=== PATIENT | male | born 2000 | race African-American/Black ===

== ENCOUNTER 2020-01-10 16:42 | Inpatient (IN) | payer OTHER, BC ==
[~2020-01-10] VITALS: Ht 172.7 cm; Wt 68.2 kg
--- NOTE | 2020-01-10 17:34 | NUR ---
OFFICER MARVIN # [id number] AND 144 PRESENT IN ED TO TALK TO PATIENT. PT MOTHER AT BEDSIDE
[2020-01-10 17:46] LABS: ALBUMIN 4.2 g/dL (3.4-5.0); ALKALINE PHOSPHATASE 58 U/L (30-120); ALT (SGPT) 36 U/L (10-68); BILIRUBIN - TOTAL 0.51 mg/dL (0.2-1.3); CALC OSMOLALITY 280 mosm/kg (275-300); CALCIUM 9.3 mg/dL (8.5-10.1); CARBON DIOXIDE 23.9 mmol/L (21.0-32.0); CHLORIDE - SERUM 103 mmol/L (98-107); CREATININE - SERUM 0.8 mg/dL (0.6-1.3); GLUCOSE 118 mg/dL (74-106); POTASSIUM - SERUM 3.9 mmol/L (3.5-5.1); PROTEIN - SERUM 8.1 g/dL (6.4-8.2); SODIUM 140 mmol/L (136-145); UREA NITROGEN 14 mg/dL (7-18); eGFR NON AFRICAN AMERICAN > 90 mL/min (90-120)
[2020-01-10 17:50] LABS: INR 1.13 (0.85-1.17); PROTIME 14.4 SECONDS (11.6-15.0)
[2020-01-10 17:57] LABS: BASOPHILS 0.2 % (0-2); EOSINOPHILS 1.5 % (0-7); HEMOGLOBIN 12.7 g/dL (13.5-17.5); IMMATURE GRANULOCYTES 0.5 % (0-5); LYMPHOCYTES 18.7 % (15-50); MCHC 35.3 g/dL (31.0-37.0); MCV 90.7 fL (80.0-100.0); MEAN PLATELET VOLUME 9.8 fL (7.4-10.4); MONOCYTES 6.6 % (2-11); NEUTROPHILS 72.5 % (40-80); PLATELET COUNT 175 10x3/uL (130-400); RBC 3.97 10x6/uL (4.20-6.10); RDW 11.5 % (11.5-14.5)
[2020-01-10 17:59] LABS: BILIRUBIN NEGATIVE (NEGATIVE); GLUCOSE NEGATIVE (NEGATIVE); KETONE NEGATIVE (NEGATIVE); NITRITE NEGATIVE (NEGATIVE); SPECIFIC GRAVITY 1.015 (1.005-1.020); UROBILINOGEN NORMAL (NORMAL)
[2020-01-10 18:05] LABS: UDS - AMPHET NEGATIVE QUAL (NEGATIVE); UDS - BARB NEGATIVE QUAL (NEGATIVE); UDS - BENZO NEGATIVE QUAL (NEGATIVE); UDS - COCAINE NEGATIVE QUAL (NEGATIVE); UDS - OPIATE NEGATIVE QUAL (NEGATIVE); UDS - PCP NEGATIVE QUAL (NEGATIVE); UDS - THC POSITIVE QUAL (NEGATIVE)
--- NOTE | 2020-01-10 19:43 | NUR ---
FRIENDS AT BEDSIDE . PATIENT ALERT TALKING. PEDAL PULSE 3+
[2020-01-10 20:30] VITALS: BP 156/98
--- NOTE | 2020-01-10 22:35 | NUR ---
PATIENT ADMITTED TO ORTHO UNIT WITH BUCKS TRACTION ON TO THE RIGHT LEG. SIGNIFICANT SWELLING IN THE RIGHT QUADRICEP. PATIENT RATES PAIN 10/10 AT THIS TIME. BUCKS TRACTION IN PLACE WITH 5LBS WEIGHT HOLDING TRACTION IN PLACE. PATIENT RIGHT PEDAL PULSES STRONG AND EQUAL WITH LEFT PEDAL PULSES. PATIENT HAS 18 GAUGE IV TO THE LEFT AC, AND 20 GAUGE TO THE RIGHT HAND. KOBE GHOSH IN ROOM PERFORMING ADMISSION ASSESSMENT. KOBE GHOSH INITIATING MORPHINE LAWN CARE SPECIALIST PER ORDER. PATIENT HAS GUERRA CATHER DRAINING LIGHT YELLOW URINE. PERFORMED HIBBA CLEANSE. PLACED SCD TO THE LEFT LOWER EXTREMETY AND BLUE SOCK ON LEFT FOOT. PATIENT HAS SMALL RIGHT HIP SKIN TEAR. EDUCATED ON NPO STATUS. CONSENTS SIGNS AT THIS TIME. DENIES OTHER NEEDS. CPOC.
--- NOTE | 2020-01-10 23:01 | NUR ---
PATIENT STATES MORPHINE GAUGER CHIEF DELIVERY EFFECTIVE FOR PAIN AT THIS TIME. RATE PAIN 8/10 FROM PRIOR 08/23. CALL LIGHT IN REACH. BED LOW. SIDE RAILS UP X 3 DUE TO BUCKS TRACTION ON THE RIGHT LOWER EXTREMETY. CPOC.
--- NOTE | 2020-01-10 23:30 | NUR ---
PT PROJECTILE VOMITING AFTER TRYING TO EAT SANDWICH AND DRINKING LEMON MCGRATH SODA. ZOFRAN ADMINISTERED. LINENS CHANGED, TOLERATED WELL. DENIES FURTHER NEEDS. WILL CTM
[2020-01-11] VITALS (12 sets, daily range): BP systolic 141–175; BP diastolic 77–105; Ht 172.7 cm; Wt 68.2 kg
--- NOTE | 2020-01-11 | NUR ---
FOOD AND DRINKS TAKEN AWAY AT THIS TIME. REMINDED PT HE IS NPO. VERBALIZED UNDERSTANDING
--- NOTE | 2020-01-11 02:15 | NUR ---
PEDAL PULSES STRONG, CAP REFILL <3, RIGHT LEG WARM TO TOUCH. RIGHT UPPER LEG SWOLLEN, TENDER TO TOUCH. DENIES NEEDS. CL IN REACH, WILL CTM
--- NOTE | 2020-01-11 04:30 | NUR ---
PT LYING IN BED RESTING WITHOUT DISTRESS, AOX4. STATES MORPHINE IS CONTROLLING PAIN. BUCKS TRACTION IN PLACE. PEDAL PULSES STRONG, CAP REFILL <3, LEG WARM WNL, RIGHT UPPER LEG SWOLLEN. DENIES NEEDS. CL IN REACH, WILL CTM
--- NOTE | 2020-01-11 07:58 | NUR ---
AWAKE AND ALERT. ORIENTED X3. NO C/O AT THIS TIME. REPORTS GOOD PAIN MANAGEMENT WITH USE OF CUSTOMS APPRAISER. 5# BUCKS TRACTION IN PLACE TO RIGHT LEG. EDEMA AND WARMTH NOTED TO UPPER THIGH OF SAME. WILL MONITOR. MOVES DIGITS FREELY. SKIN IS INTACT WITHOUT REDNESS. IV TO LEFT AC IS PATENT WITHOUT REDNES AT INSERTION SITE. GUERRA PATENT WITH CLEAR YELLOW URINE. DENIES NEEDS.
[2020-01-11 09:08] LABS: HEMATOCRIT 34.7 % (42.0-54.0); HEMOGLOBIN 12.3 g/dL (13.5-17.5); MCH 31.9 pg (26.0-34.0); MCHC 35.4 g/dL (31.0-37.0); MCV 89.9 fL (80.0-100.0); MEAN PLATELET VOLUME 10.2 fL (7.4-10.4); RBC 3.86 10x6/uL (4.20-6.10); RDW 11.6 % (11.5-14.5); WBC 12.5 10x3/uL (4.8-10.8)
--- NOTE | 2020-01-11 10:26 | NUR ---
RESTING QUIETLY IN BED. DENIES NEEDS. NO CHANGES.
--- NOTE | 2020-01-11 13:10 | NUR ---
OFF UNIT VIA BED TO SURGERY.
--- NOTE | 2020-01-11 15:25 | MORECARE ---
CASE MANAGEMENT DISCHARGE SUMMARY PATIENT: MARK HOOKER UNIT: [id number] ADM DATE: 01/10/20 AGE: 19 : 00 SEX: M ROOM/BED: D.1211 AUTHOR: ALTHEA MAO PHYSICIAN: REFERRING PHYSICIAN: PAT NORIEGA MD DATE OF SERVICE: 01/11/20 Discharge Plan Patient Name: MARK HOOKER Facility: [facility]:[place] : 2000 Planned Disposition: Home Anticipated Discharge Date: Discharge Date: Expected LOS: Initial Reviewer: [email or web address] Initial Review Date: 01/10/2020 Generated: 01/11/20 4:24 pm DCPIA - Discharge Planning Initial Assessment Updated by [id number]: Eva Weldon on 01/11/20 3:16 pm * Is the patient Alert and Oriented? Yes * PCP No PCP * [facility] * Preadmission Environment Home with Family * ADLs Independent * Equipment None * List name and contact numbers for known caregivers / representatives who currently or will assist patient after discharge: Sarah Means [facility] [phone] * Verbal permission to speak to the caregivers and representatives has been obtained from the patient. Yes * Community resources currently utilized None * Additional services required to return to the preadmission environment? No * Can the patient safely return to the preadmission environment? Yes * Has this patient been hospitalized within the prior 30 days at any hospital? No Patient Name: MARK HOOKER Page [id number] at 1525 All edits/amendments must be made on the electronic document DICTATION DATE: 01/11/20 1524 TECHNICAL SUPPORT PROFESSIONAL: EDILIA 01/11/20 1524 RPT#: [id number] DC DATE: STATUS: ADM IN [facility] [address] [place] [address] END OF REPORT
--- NOTE | 2020-01-11 15:33 | MORECARE ---
CASE MANAGEMENT DISCHARGE SUMMARY PATIENT: MARK HOOKER UNIT: [id number] ADM DATE: 01/10/20 AGE: 19 : 00 SEX: M ROOM/BED: D.1211 AUTHOR: DAYLIN,DOC PHYSICIAN: REFERRING PHYSICIAN: PAT NORIEGA MD DATE OF SERVICE: 01/11/20 Discharge Plan Patient Name: MARK HOOKER Facility: [facility]:[place] : 2000 Planned Disposition: Home Anticipated Discharge Date: Discharge Date: Expected LOS: Initial Reviewer: [email or web address] Initial Review Date: 01/10/2020 Generated: 01/11/20 4:32 pm Comments DCP- Discharge Planning Updated by [email or web address]: Eva Weldon on 01/11/20 2:[address] DC PLAN: Return home with his mother. ANTICIPATED DC NEEDS: denied known dc needs at time of assessment. CM met with patient to complete initial dc planning assessment. CM educated patient on the CM role and verbal consent given by patient to complete assessment. CM verified patient's address, phone number, and emergency contact phone numbers. Patient lives at home with his mother. He reports that prior to admission he was independent in his care at home. At discharge patient plans to return home and feels this is a safe discharge. CM discussed availability of home health, rehab services, and medical equipment. Patient denied known discharge needs at this time. He may require DME at dc. CM will follow up with patient and will assist with dc needs. Transportation provider at discharge will be his mother. CM will continue to follow and will assist as needed with dc plans/needs. Eva Weldon RN, [facility] DCPIA - Discharge Planning Initial Assessment Updated by [email or web address]: Eva Weldon on 01/11/20 3:16 pm * Is the patient Alert and Oriented? Yes * PCP No PCP * [facility] * Preadmission Environment Home with Family * ADLs Independent * Equipment None * List name and contact numbers for known caregivers / representatives who currently or will assist patient after discharge: Sarah Means - mother - [phone] * Verbal permission to speak to the caregivers and representatives has been obtained from the patient. Yes * Community resources currently utilized None * Additional services required to return to the preadmission environment? No * Can the patient safely return to the preadmission environment? Yes * Has this patient been hospitalized within the prior 30 days at any hospital? No Last DP export: 01/11/20 2:25 p Patient Name: MARK HOOKER Page 47119 at 1533 All edits/amendments must be made on the electronic document DICTATION DATE: 01/11/201532 PERSONAL BANKER: EDILIA 01/11/201532 RPT#: [id number] DC DATE: STATUS: ADM IN [facility] [address] [place] [address] END OF REPORT
--- NOTE | 2020-01-11 17:05 | NUR ---
RETURNED FROM SURGERY. A/O X3. DRESSINGS TO RIGHT LEG DRY AND INTACT. DENIES NEEDS.
--- NOTE | 2020-01-11 18:35 | NUR ---
RESTING QUIETLY IN BED WITH EYES CLOSED. VISITOR AT BEDSIDE. REFUSED TO EAT SUPPER AT THIS TIME. EXPLAINED WE HAVE SNACKS AVAILABLE IF HUNGRY LATER. DENIES NEEDS.
--- NOTE | 2020-01-11 19:17 | NUR ---
BEDSIDE REPORT COMPLETED AT THIS TIME, PT AWAKE AND ALERT ANSWERING QUESTIONS. PT DENIES COMPLAINTS AT THIS TIME, NO DISTRESS NOTED, PT CARE RECEIVED AT THIS TIME
--- NOTE | 2020-01-11 22:10 | NUR ---
PT REQUESTED SOME SOUP TO EAT, PT WAS PROVIDED WITH CHICKEN NOODLE SOUP AND ICE WATER PER REQUEST, PT DENIES COMPLAINTS OR DISTRESS AT THIS TIME.
[2020-01-12 04:00] VITALS: BP 165/94
--- NOTE | 2020-01-12 04:00 | NUR ---
PT AWAKENED FOR V/S, PT DENIES COMPLAINTS, WILL MONITOR FOR CHANGES
[2020-01-12 06:39] LABS: HEMATOCRIT 32.8 % (42.0-54.0); HEMOGLOBIN 11.6 g/dL (13.5-17.5); MCH 31.8 pg (26.0-34.0); MCHC 35.4 g/dL (31.0-37.0); MCV 89.9 fL (80.0-100.0); RBC 3.65 10x6/uL (4.20-6.10); RDW 11.6 % (11.5-14.5); WBC 9.7 10x3/uL (4.8-10.8)
[2020-01-12 07:36] VITALS: BP 152/66
[2020-01-12 07:49] VITALS: BP 152/66
--- NOTE | 2020-01-12 07:59 | NUR ---
ALERT AND ORIENTED X4. DRESSINGS DRY AND INTACT TO RT. FEMUR LATERAL ASPECT. PEDAL PULSES NOTED X2 WITH SCD NOTED TO LEFT LEG. ENCOURAGED AND INSTRUCTED ON EMBOLISM PRECAUTIONS WITH USE OF INCENTIVE SPIROMETER AND LEG EXERCISES WHILE IN BED. INSTRUCTED ON PAIN MANAGEMENT METHODS WITH ICE AND USE OF GEOTHERMAL INSTALLER MORPHINE AT PRESCRIBED SETTINGS. ENCOURAGED TO USE CALL LIGHT FOR ASSSIT. PAIN LEVEL5/10 WITH ICE PACK REAPPLIED. INSTRUCTED ON NEED FOR AMBULATION TODAY.
[2020-01-12] MEDS ORDERED: ASPIRIN325 MG PO (10:20)
[2020-01-12] MEDS ORDERED: PERCOCET 10-321 EAC1 PO (10:20)
[2020-01-12 11:08] VITALS: BP 130/103
--- NOTE | 2020-01-12 11:08 | NUR ---
GUERRA CATH DISCONTINUED ALONG WITH LIVESTOCK AGENT. PERCOCET GIVEN FOR WING MANAGEMENT. ENCOURAGED TO INCREASE DIETARY INTAKE WELL HYDRATION WITH PATINET VERBALIZEING UNDERSTANDING.
--- NOTE | 2020-01-12 12:46 | MORECARE ---
CASE MANAGEMENT DISCHARGE SUMMARY PATIENT: MARK HOOKER UNIT: [id number] ADM DATE: 01/10/20 AGE: 19 : 00 SEX: M ROOM/BED: D.1211 AUTHOR: DAYLIN,DOC PHYSICIAN: REFERRING PHYSICIAN: PAT NORIEGA MD DATE OF SERVICE: 01/12/20 Discharge Plan Patient Name: MARK HOOKER Facility: [facility]:[place] : 2000 Planned Disposition: Home Anticipated Discharge Date: Discharge Date: Expected LOS: Initial Reviewer: [email or web address] Initial Review Date: 01/10/2020 Generated: 01/12/20 1:46 pm Comments DCP- Discharge Planning Updated by [email or web address]: Eva Weldon on 01/11/20 2:[address] DC PLAN: Return home with his mother. ANTICIPATED DC NEEDS: denied known dc needs at time of assessment. CM met with patient to complete initial dc planning assessment. CM educated patient on the CM role and verbal consent given by patient to complete assessment. CM verified patient's address, phone number, and emergency contact phone numbers. Patient lives at home with his mother. He reports that prior to admission he was independent in his care at home. At discharge patient plans to return home and feels this is a safe discharge. CM discussed availability of home health, rehab services, and medical equipment. Patient denied known discharge needs at this time. He may require DME at dc. CM will follow up with patient and will assist with dc needs. Transportation provider at discharge will be his mother. CM will continue to follow and will assist as needed with dc plans/needs. Eva Weldon RN, [facility] DCPIA - Discharge Planning Initial Assessment Updated by [email or web address]: Eva Weldon on 01/11/20 3:16 pm * Is the patient Alert and Oriented? Yes * PCP No PCP * [facility] * Preadmission Environment Home with Family * ADLs Independent * Equipment None * List name and contact numbers for known caregivers / representatives who currently or will assist patient after discharge: Sarah Means - mother - [phone] * Verbal permission to speak to the caregivers and representatives has been obtained from the patient. Yes * Community resources currently utilized None * Additional services required to return to the preadmission environment? No * Can the patient safely return to the preadmission environment? Yes * Has this patient been hospitalized within the prior 30 days at any hospital? No External Providers External Provider: OTHER-OTHER Next Contact Date: Service Request Date: Service Type: Resolution: Reviewer: Comments: Coverage Notice Reviewer: [id number] - Ninoska Sharif Notice Issued Date-Time: 01/12/2020 12:30 Notice Type: Patient Choice Letter Notice Delivered To: Patient Relationship to Patient: Medical Legal Investigator Name: Delivery Method: HAND - Hand Delivered Steph Days: Prior Verbal Notification: Recipient Understood Notice: Yes Recipient Signature: Yes Med Rec Note Co-signed by Attending: Coverage Notice Comment: HAY FOR [facility] 4 OR [facility] Last DP export: 01/11/20 2:33 p Patient Name: MARK HOOKER Page 27066 at 1246 All edits/amendments must be made on the electronic document DICTATION DATE: 01/12/20 1246 CHAIN MAKER MACHINE: EDILIA 01/12/20 1246 RPT#: [id number] DC DATE: STATUS: ADM IN [facility] [address] [place] [address] END OF REPORT
--- NOTE | 2020-01-12 12:53 | MORECARE ---
CASE MANAGEMENT DISCHARGE SUMMARY PATIENT: MARK HOOKER UNIT: [id number] ADM DATE: 01/10/20 AGE: 19 : 00 SEX: M ROOM/BED: D.1211 AUTHOR: DAYLIN,DOC PHYSICIAN: REFERRING PHYSICIAN: PAT NORIEGA MD DATE OF SERVICE: 01/12/20 Discharge Plan Patient Name: MARK HOOKER Facility: [facility]:[place] : 2000 Planned Disposition: Home Anticipated Discharge Date: Discharge Date: Expected LOS: Initial Reviewer: [email or web address] Initial Review Date: 01/10/2020 Generated: 01/12/20 1:53 pm Comments DCP- Discharge Planning Updated by [email or web address]: Eva Weldon on 01/11/20 2:[address] DC PLAN: Return home with his mother. ANTICIPATED DC NEEDS: denied known dc needs at time of assessment. CM met with patient to complete initial dc planning assessment. CM educated patient on the CM role and verbal consent given by patient to complete assessment. CM verified patient's address, phone number, and emergency contact phone numbers. Patient lives at home with his mother. He reports that prior to admission he was independent in his care at home. At discharge patient plans to return home and feels this is a safe discharge. CM discussed availability of home health, rehab services, and medical equipment. Patient denied known discharge needs at this time. He may require DME at dc. CM will follow up with patient and will assist with dc needs. Transportation provider at discharge will be his mother. CM will continue to follow and will assist as needed with dc plans/needs. Eva Weldon RN, [facility] DCPIA - Discharge Planning Initial Assessment Updated by [email or web address]: Eva Weldon on 01/11/20 3:16 pm * Is the patient Alert and Oriented? Yes * PCP No PCP * [facility]acy [facility] * Preadmission Environment Home with Family * ADLs Independent * Equipment None * List name and contact numbers for known caregivers / representatives who currently or will assist patient after discharge: Sarah Means - mother - [phone] * Verbal permission to speak to the caregivers and representatives has been obtained from the patient. Yes * Community resources currently utilized None * Additional services required to return to the preadmission environment? No * Can the patient safely return to the preadmission environment? Yes * Has this patient been hospitalized within the prior 30 days at any hospital? No External Providers External Provider: [facility] Next Contact Date: Service Request Date: Service Type: Resolution: Reviewer: Comments: Coverage Notice Reviewer: [id number] Jamaal Ninoskamary Sharif Notice Issued Date-Time: 01/12/2020 12:30 Notice Type: Patient Choice Letter Notice Delivered To: Patient Relationship to Patient: Alternative Financing Specialist Name: Delivery Method: HAND - Hand Delivered Steph Days: Prior Verbal Notification: Recipient Understood Notice: Yes Recipient Signature: Yes Med Rec Note Co-signed by Attending: Coverage Notice Comment: HAY FOR [facility] 4 OR [facility] Last DP export: 01/12/20 11:46 a Patient Name: MARK HOOKER Page [id number] at 1253 All edits/amendments must be made on the electronic document DICTATION DATE: 01/12/20 1253 CLINICAL REHAB SPECIALIST: EDILIA 01/12/20 1253 RPT#: [id number] DC DATE: STATUS: ADM IN [facility] [address] [place] [address] END OF REPORT
--- NOTE | 2020-01-12 13:00 | MORECARE ---
CASE MANAGEMENT DISCHARGE SUMMARY PATIENT: MARK HOOKER UNIT: [id number] ADM DATE: 01/10/20 AGE: 19 : 00 SEX: M ROOM/BED: D.1211 AUTHOR: DAYLIN,DOC PHYSICIAN: REFERRING PHYSICIAN: PAT NORIEGA MD DATE OF SERVICE: 01/12/20 Discharge Plan Patient Name: MARK HOOKER Facility: [facility]:[place] : 2000 Planned Disposition: Home Anticipated Discharge Date: Discharge Date: Expected LOS: Initial Reviewer: [email or web address] Initial Review Date: 01/10/2020 Generated: 01/12/20 1:59 pm Comments DCP- Discharge Planning Updated by [id number]: Ninoska Sharif on 01/12/20 11:[address] Patient Name: MARK HOOKER Admission Status: ER Accout number: [id number] Admission Date: 01-10-2020 : 2000 Admission Diagnosis: Attending: PAT NORIEGA Current LOS: 2 Anticipated DC Date: Planned Disposition: Home Primary Insurance: [employer] Discharge Planning Comments: CM MET WITH PATIENT ABOUT EQUIPMENT AND HH. PATIENT SIGNED HAY FOR DME FROM [employer] PHONE # [phone] AND HH WITH [facility]. [employer] BRINGING CRUTCHES TO THE ROOM AND HH ORDERS FAXED TO [facility] FOR A START DATE OF TUESDAY. CM TO FOLLOW AND ASSIST NEEDED. Sliver Lap Machine Tender: Ninoska Sharif DCP- Discharge Planning Updated by [email or web address]: Eva Weldon on 01/11/20 2:[address] DC PLAN: Return home with his mother. ANTICIPATED DC NEEDS: denied known dc needs at time of assessment. CM met with patient to complete initial dc planning assessment. CM educated patient on the CM role and verbal consent given by patient to complete assessment. CM verified patient's address, phone number, and emergency contact phone numbers. Patient lives at home with his mother. He reports that prior to admission he was independent in his care at home. At discharge patient plans to return home and feels this is a safe discharge. CM discussed availability of home health, rehab services, and medical equipment. Patient denied known discharge needs at this time. He may require DME at dc. CM will follow up with patient and will assist with dc needs. Transportation provider at discharge will be his mother. CM will continue to follow and will assist as needed with dc plans/needs. Eva Weldon RN, [facility] DCPIA - Discharge Planning Initial Assessment Updated by [email or web address]: Eva Weldon on 01/11/20 3:16 pm * Is the patient Alert and Oriented? Yes * PCP No PCP * [facility]acy [facility] * Preadmission Environment Home with Family * ADLs Independent * Equipment None * List name and contact numbers for known caregivers / representatives who currently or will assist patient after discharge: Sarah Means - mother - [phone] * Verbal permission to speak to the caregivers and representatives has been obtained from the patient. Yes * Community resources currently utilized None * Additional services required to return to the preadmission environment? No * Can the patient safely return to the preadmission environment? Yes * Has this patient been hospitalized within the prior 30 days at any hospital? No Coverage Notice Reviewer: [id number] Jamaal Sharif Notice Issued Date-Time: 01/12/2020 12:30 Notice Type: Patient Choice Letter Notice Delivered To: Patient Relationship to Patient: Web Methods Developer Name: Delivery Method: HAND - Hand Delivered Steph Days: Prior Verbal Notification: Recipient Understood Notice: Yes Recipient Signature: Yes Med Rec Note Co-signed by Attending: Coverage Notice Comment: HAY FOR [facility] 4 OR [facility] Last DP export: 01/12/20 11:53 a Patient Name: MARK HOOKER Page [id number] at 1300 All edits/amendments must be made on the electronic document DICTATION DATE: 01/12/20 1259 IMAGING TECHNICIAN: EDILIA 01/12/20 1259 RPT#: [id number] DC DATE: STATUS: ADM IN [facility] [address] [place] [address] END OF REPORT
--- NOTE | 2020-01-12 15:49 | NUR ---
IV DISCONTINUED AND VERBALIZED UNDERSTANDING OF DISCHARGE INSTRUCTIONS WITH RX GIVEN ALONG WITH HOME HEALTH REFERAL. STABLE AT TIME OF DEPARTURE AND DEMONTRATEDE TDWB TECHNIQUE WITH CRUTCHES. DISCHARGED UNDER CARE OF MOTHER.
--- NOTE | 2020-01-14 09:30 | MORECARE ---
CASE MANAGEMENT DISCHARGE SUMMARY PATIENT: MARK HOOKER UNIT: [id number] ADM DATE: 01/10/20 AGE: 19 : 00 SEX: M ROOM/BED: D.1211 AUTHOR: DAYLIN,DOC PHYSICIAN: REFERRING PHYSICIAN: PAT NORIEGA MD DATE OF SERVICE: 01/14/20 Discharge Plan Patient Name: MARK HOOKER Facility: [facility]:[place] : 2000 Planned Disposition: Home Anticipated Discharge Date: Discharge Date: 01/12/2020 Expected LOS: Initial Reviewer: [email or web address] Initial Review Date: 01/10/2020 Generated: 01/14/20 10:29 am Comments DCP- Discharge Planning Updated by [email or web address]: Ninoska Sharif on 01/12/20 11:[address] Patient Name: MARK HOOKER Admission Status: ER Accout number: [id number] Admission Date: 01-10-2020 : 2000 Admission Diagnosis: Attending: PAT NORIEGA Current LOS: 2 Anticipated DC Date: Planned Disposition: Home Primary Insurance: [employer] Discharge Planning Comments: CM MET WITH PATIENT ABOUT EQUIPMENT AND HH. PATIENT SIGNED HAY FOR DME FROM [employer] PHONE # [phone] AND HH WITH [facility]. [employer] BRINGING CRUTCHES TO THE ROOM AND HH ORDERS FAXED TO [facility] FOR A START DATE OF TUESDAY. CM TO FOLLOW AND ASSIST NEEDED. Spoon Maker: Ninoska Sharif DCP- Discharge Planning Updated by [email or web address]: Eva Weldon on 01/11/20 2:[address] DC PLAN: Return home with his mother. ANTICIPATED DC NEEDS: denied known dc needs at time of assessment. CM met with patient to complete initial dc planning assessment. CM educated patient on the CM role and verbal consent given by patient to complete assessment. CM verified patient's address, phone number, and emergency contact phone numbers. Patient lives at home with his mother. He reports that prior to admission he was independent in his care at home. At discharge patient plans to return home and feels this is a safe discharge. CM discussed availability of home health, rehab services, and medical equipment. Patient denied known discharge needs at this time. He may require DME at [place]. CM will follow up with patient and will assist with dc needs. Transportation provider at discharge will be his mother. CM will continue to follow and will assist as needed with dc plans/needs. Eva Weldon RN, [facility] DCPIA - Discharge Planning Initial Assessment Updated by [email or web address]: Eva Weldon on 01/11/20 3:16 pm * Is the patient Alert and Oriented? Yes * PCP No PCP * [facility]acy [facility] * Preadmission Environment Home with Family * ADLs Independent * Equipment None * List name and contact numbers for known caregivers / representatives who currently or will assist patient after discharge: Sarah Means - mother - [phone] * Verbal permission to speak to the caregivers and representatives has been obtained from the patient. Yes * Community resources currently utilized None * Additional services required to return to the preadmission environment? No * Can the patient safely return to the preadmission environment? Yes * Has this patient been hospitalized within the prior 30 days at any hospital? No Coverage Notice Reviewer: [id number] Jamaal Sharif Notice Issued Date-Time: 01/12/2020 12:30 Notice Type: Patient Choice Letter Notice Delivered To: Patient Relationship to Patient: Marketing Database Analyst Name: Delivery Method: HAND - Hand Delivered Steph Days: Prior Verbal Notification: Recipient Understood Notice: Yes Recipient Signature: Yes Med Rec Note Co-signed by Attending: Coverage Notice Comment: HAY FOR DME [facility] 4 OR [facility] Last DP export: 01/12/20 12:00 p Patient Name: MARK HOOKER Page [id number] at 0930 All edits/amendments must be made on the electronic document DICTATION DATE: 01/14/20928 PEST CONTROL PILOT: DM 01/14/20928 RPT#: [id number] DC DATE:01/12/20 STATUS: DIS IN [facility] [address] [place] [address] END OF REPORT
--- NOTE | 2020-01-17 07:24 | OP ---
PATIENT NAME: MARK HOOKER MEDICAL RECORD: [id number] :00 LOCATION:D.M3 D.1211 ADMISSION DATE:01/10/20 SURGEON: PAT NORIEGA MD DATE OF OPERATION: 01/11/2020 PREOPERATIVE DIAGNOSIS: Mid shaft femur fracture of the right femur. POSTOPERATIVE DIAGNOSIS: Mid shaft femur fracture of the right femur. PROCEDURE: IM rodding of midshaft femur fracture. SURGEON: Pat Noriega MD COLOR PRINT INSPECTOR: None. INTRAOPERATIVE COMPLICATIONS: None. SUMMARY OF PATHOLOGIC FINDINGS: The patient had a midshaft femur fracture consistent with the radiographs and CT scans. This was a transverse femur fracture with minimal comminution, very amenable to intramedullary rodding. OPERATIVE SUMMARY IN DETAIL: After obtaining the appropriate preoperative orthopedic surgery consent, as well as anesthetic consultation, evaluation and clearance, the patient was brought to the operating room and placed on the operating table in supine position. After adequate general laryngeal mask airway was administered, the patient was placed on the fracture table. He was held firmly to the fracture table using the seatbelt system. All pressure points were well padded. The left leg was placed in the well-leg weaver. The right leg was placed in traction. After securing the patient, the appropriate preoperative timeout was done and agreed upon by all given the patient's unique identifiers. Under direct fluoroscopic guidance, reduction was achieved in both AP and lateral planes. The hip was then prepped and draped in routine sterile fashion. Incision was made at the tip of the greater trochanter. Intramedullary guide hole was created using the awl. Ball-tipped guidewire was then passed over the fracture under fluoroscopy on AP and lateral planes. At this point, further reduction was achieved with releasing some of the traction to allow for better apposition. Serial and sequential reaming done for a size 11 IM josé luis. The appropriate measurements were taken at 3, 40, 11. José Luis was passed over the fracture site on arthroscopic visualization. Distal interlocking screw was placed first. This was followed by reverse impaction to compress the fracture. This was followed by proximal interlocking times 2. Final radiographs were taken and submitted for radiologist review. Wounds were then closed with #1 Vicryl, 2-0 Vicryl, and skin darcy. Sterile dressings were applied. The patient was awakened and taken to recovery room in stable condition. All final needle and sponge counts were correct. TRANSINT:[id number] Voice Confirmation ID: [id number] DOCUMENT ID: [id number] OPERATIVE REPORT [id number] MARK HOOKER MD, PAT ZEPEDA at 0724 CC: [id number] DICTATION DATE: 01/16/20917 SECURITY GUARD: 01/16/20 1110 DIS IN 01/12/20 [id number] [place] [address]
== END 2020-01-12 15:49 | disposition home health service (06) | DRG 482 ==
LOC: D.ER 16:42 → D.M3 17:34
PROVIDERS: Emergency Medicine; ADMIT Orthopaedic Surgery; ATTEND Orthopaedic Surgery
PROC: 0QS836Z Reposition Right Femoral Shaft with Intramedullary Internal Fixation Device, Percutaneous Approach (ICD-10-PCS; principal; 2020-01-11 14:30)
DX: S72.91XA Unspecified fracture of right femur, initial encounter for closed fracture (principal); V49.9XXA Car occupant (driver) (passenger) injured in unspecified traffic accident, initial encounter; Z72.0 Tobacco use